=== PATIENT | female | born 1955 | race Caucasian/White ===

== ENCOUNTER 2017-06-11 12:46 | Emergency (ER) | payer OTHER ==
[~2017-06-11 12:46] MED LIST: ISOVUE-370 76%-LOCM 1 ML ONE
[2017-06-11 15:12] LABS: #Eosinphils 0.2 thou/uL (0.0-0.7); #Lymphocytes 1.3 thou/uL (1.20-3.40); #Neutrophils 10.1 thou/uL (1.40-6.50); %Basophils 0.1 % (0.0-1.0); %Eosinophils 1.6 % (0.0-10.0); %Lymphocytes 9.8 % (21.0-51.0); %Monocytes 14.4 % (0.0-10.0); %Neutrophils 74.1 % (42.0-75.0); Hemoglobin 9.5 g/dL (12.0-16.0); Mean Corpuscular HGB CONC 31.1 g/dL (32.0-36.0); Mean Corpuscular Hemoglobin 26.5 pg (27.0-31.0); Mean Corpuscular Volume 85.3 fl (81.0-99.0); Mean Platelet Volume 7.1 fL (7.4-10.4); Platelet Count 628 thou/uL (130-400); RBC Distribution Width 16.8 % (11.5-14.5); Red Blood Cell (RBC) Count 3.57 mill/uL (4.20-5.40); White Blood Cell (WBC) Count 13.6 thou/uL (4.8-10.8)
[2017-06-11 15:30] LABS: ALT (SGPT) 19 U/L (8-55); AST (SGOT) 30 U/L (5-34); Albumin 2.7 g/dL (3.5-5.0); Alkaline Phosphatase 140 U/L (40-150); Anion Gap 14 mmol/L (10-20); BUN (Urea Nitrogen) 9 mg/dL (9.8-20.1); Bilirubin, Total 0.4 mg/dL (0.2-1.2); Calc. Creatinine Clearance 0 mL/min (70-130); Calcium 8.5 mg/dL (7.8-10.44); Carbon Dioxide 29 mmol/L (22-29); Chloride 99 mmol/L (98-107); Estimated GFR-MDRD 78; Globulin 4.7 g/dL (2.4-3.5); Glucose 112 mg/dL (70-105); Protein, Total 7.4 g/dL (6.0-8.3); Sodium 139 mmol/L (136-145)
[2017-06-11 15:39] LABS: Potassium 2.9 mmol/L (3.5-5.1)
[2017-06-11] MEDS ORDERED: Potassium Chloride 20 MEQ TAB ONE (15:47)
[2017-06-11] MEDS ORDERED: Ondansetron HCl/PF 4 MG/2 ML Vial ONE (15:47)
[2017-06-11 16:19] LABS: Bilirubin Small (Negative); Blood, Urine Negative (Negative); Clarity CLOUDY (Clear); Glucose, Urine (Dipstick) Negative (Negative); Leukocyte Small (Negative); Nitrite Negative (Negative); Protein, Urine (Dipstick) 30 mg/dL (Neg-Trace); Specific Gravity, Urine 1.021 (1.002-1.036); Urobilinogen 0.2 mg/dL (0.2-1.0)
[2017-06-11 16:23] LABS: Pathc Cast-AUWi Flag 3.25 (0-2.49)
[2017-06-11 16:30] LABS: Bacteria/HPF 1+ HPF (None Seen); Hyaline Casts/LPF 4-6 HYALINE CAST LPF (0-3 Hyaline); RBC/HPF None Seen HPF (0-3); Renal Epithelial None Seen HPF (0-3); Transitional Epithelial NONE SEEN HPF (0-3)
[2017-06-11 16:31] LABS: Manual Microscopic Reviewed? No Path Casts Seen
--- NOTE | 2017-06-11 17:34 | CT ---
CT ABDOMEN AND PELVIS WITH CONTRAST 06/11/17 HISTORY: Abdominal pain. Recent surgery for bowel perforation. Vaginal bleeding. FINDINGS: There is a moderate sized right pleural effusion. Atelectatic changes in the lung bases. There is a s ubcapsular collection of the liver extending to the deep pelvis. In greatest dimensions this measures 5.4 cm in transverse x 9 cm in AP x approximately 24 cm in craniocaudal dimension. At the collection caudad to the liver is much smaller than it is at the subcapsular portion of the liver. this appears to communicate with the peritoneal space although there is no definite free fluid remaining in the p eritoneal cavity. 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 There is adh esions of the small bowel to the anterior abdominal wall. There appears to be a small collection near the umbilicus measuring approximately 1 cm x 1 cm. There are inflammatory changes and postsurgical changes throughout the mesentery. Aortoiliac contour is normal. The kidneys are without hydronephrosis. There appears to be a loop ileostomy. IMPRESSION: 1. Right subcapsular seroma or infected collection of the liver extending into the deep pelvis. The portions of the collection in the deep pelvis are very small and likely involuting. Overall, this has a size measuring 5.3 x 9 x 24 cm, although the majority of this is subcapsular with only a very small amount of the collection being intraperitoneal. 2. Extensive postsurgical changes as well as edema within the mesentery. 3. Small collection just deep to the umbilicus within the peritoneal cavity measuring approximat tamika 1 cm. 4. Edema within the mesentery of the small and large bowel as well as edema along the left parac olic gutter may be postsurgical in nature versus peritonitis. 5. Large right layering pleural effusion likely sequela of the underlying subcapsular infectious process. POS: [facility]
[2017-06-11 17:41] LABS: INR-International Normal Ratio 1.4
[2017-06-11] MEDS ORDERED: Promethazine HCl 25 MG/ML VIAL ONE (19:02)
[2017-06-11] MEDS ORDERED: Morphine 4 MG/ML VIAL ONE (19:24)
== END 2017-06-11 20:25 | disposition short-term general hospital (02) ==
LOC: ERS 12:46
DX: R18.8 Other ascites (principal); I10 Essential (primary) hypertension; Z79.899 Other long term (current) drug therapy
CPT/HCPCS: 36415; 51701; 74177; 80053; 81003; 81015; 85025; 85610; 86850; 86900; 86901; 87086; 93005; 96361; 96365; 96375; A4353; J0696; J2270; J2405; J2550

== ENCOUNTER 2024-05-01 08:24 | Outpatient (CLI) | payer MEDICARE, BC | END 2024-05-01 08:25 | disposition home or self-care (01) | LOC: CT 08:24 | PROVIDERS: ATTEND Internal Medicine | DX: K66.0 Peritoneal adhesions (postprocedural) (postinfection) (principal); R10.84 Generalized abdominal pain; R11.0 Nausea; R19.7 Diarrhea, unspecified; Z93.3 Colostomy status | CPT/HCPCS: 74177; 82565 ==